=== PATIENT | female | born 1935 | race Caucasian/White ===

== ENCOUNTER 2017-06-10 07:41 | Day surgery (SDC) | payer MEDICARE ==
[~2017-06-10] VITALS: Ht 157.5 cm; Wt 52.2 kg
[~2017-06-10 07:41] MED LIST: ASPI81TA85 PO; CALC1TAB60 PO; CALCCAP PO; CALCTAB7 PO; ESTR62CR PV; METF500T4 PO; METO50TA7 PO; MULTIVIT WITH IRON PO; MULTLIQ7; MULTTAB24 PO; NEXI20CA PO; OMEP20CA3 PO; OSTETAB2 PO; PRAV10TA4 PO; PREM.6256 PO; RAMI25CA PO; RANI50SY IV; RANI50SY PO; VALI5TAB PO; VITA-110 PO; VITATAB54 PO
[2017-06-10] MEDS ORDERED: NS 1,000 ML IV ONE (07:45)
[2017-06-10] MEDS ORDERED: PROPOFOL 200 MG/20 ML VIAL As Ordered ONE (07:54)
[2017-06-10] MEDS ORDERED: LIDOCAINE 2% INJ 100 MG/5 ML SDV (FOR ANES.) As Ordered ONE (07:54)
--- NOTE | 2017-06-10 10:02 | ROOR ---
Patient Name: Debora Tai Procedure Date: 06/10/2017 9:35 AM Date of : 1935 Age: 81 Room: [facility] Gender: Female Note Status: Finalized Procedure: Colonoscopy Indications: High risk colon cancer surveillance: Personal history of adenoma with high grade dysplasia. (5 mm sigmoid adenoma with HGD 09/2015) Providers: Linwood MAGUIRE MD Referring MD: MIRNA MONAE MD Requesting Provider: Medicines: Monitored Anesthesia Care Complications: No immediate complications. Procedure: Pre-Anesthesia Assessment: - The heart rate, respiratory rate, oxygen saturations, blood pressure, adequacy of pulmonary ventilation, and response to care were monitored throughout the procedure. The Colonoscope was introduced through the anus and advanced to the cecum, identified by appendiceal orifice and ileocecal valve. The colonoscopy was performed without difficulty. The patient tolerated the procedure well. The quality of the bowel preparation was good. Findings: The perianal and digital rectal examinations were normal. (Exam: Complete, Prep: Good or Excellent.) A diminutive polyp was found in the ascending colon. The polyp was sessile. The polyp was removed with a cold snare. Resection and retrieval were complete. Multiple medium-mouthed diverticula were found in the sigmoid colon. There is no endoscopic evidence of polyps in the sigmoid colon. Impression: - One diminutive polyp in the ascending colon, removed with a cold snare. Resected and retrieved. - Moderate diverticulosis in the sigmoid colon. - The colon is otherwise normal. - I do not see any recurrent/residual polyp in sigmoid colon. Recommendation: - Repeat colonoscopy in 1 year for surveillance of high-grade dysplasia. Linwood Maguire MD Linwood MAGUIRE MD 06/10/2017 10:02:35 AM This report has been signed electronically. Number of Addenda: 0 Note Initiated On: 06/10/2017 9:35 AM Estimated Blood Loss: Estimated blood loss: none.
[2017-06-10 10:20] VITALS: BP 145/85
== END 2017-06-10 10:32 | disposition home or self-care (01) ==
LOC: M OPP 07:41
PROVIDERS: ATTEND Internal Medicine Gastroenterology
DX: Z09 Encounter for follow-up examination after completed treatment for conditions other than malignant neoplasm (principal); D37.4 Neoplasm of uncertain behavior of colon; D12.2 Benign neoplasm of ascending colon; K57.30 Diverticulosis of large intestine without perforation or abscess without bleeding; I10 Essential (primary) hypertension; E78.5 Hyperlipidemia, unspecified; E11.9 Type 2 diabetes mellitus without complications; R12 Heartburn; K21.9 Gastro-esophageal reflux disease without esophagitis; M19.90 Unspecified osteoarthritis, unspecified site; Z78.0 Asymptomatic menopausal state; Z79.82 Long term (current) use of aspirin; Z79.899 Other long term (current) drug therapy; Z79.84 Long term (current) use of oral hypoglycemic drugs; Z88.8 Allergy status to other drugs, medicaments and biological substances; Z80.3 Family history of malignant neoplasm of breast; Z80.8 Family history of malignant neoplasm of other organs or systems

== ENCOUNTER 2018-12-29 07:45 | Day surgery (SDC) | payer MEDICARE ==
[~2018-12-29] VITALS: Ht 154.9 cm; Wt 50.3 kg
[~2018-12-29 07:45] MED LIST changes: +CALCCAP4 PO; +OMEP-218 PO; +RAMI1CAP22 PO; -RAMI25CA PO; -RANI50SY IV; -RANI50SY PO; +VITA400T PO; +ZANT25IN19 IV; +ZANT25IN19 PO
[2018-12-29] MEDS ORDERED: PROPOFOL 500 MG/50 ML VIAL As Ordered ONE (07:49)
[2018-12-29] MEDS ORDERED: NS 1,000 ML IV SCH (08:30)
[2018-12-29] MEDS ORDERED: LIDOCAINE 2% INJ 100 MG/5 ML SDV (FOR ANES.) As Ordered ONE (08:58)
--- NOTE | 2018-12-29 09:28 | ROOR ---
Patient Name: Debora Tai Procedure Date: 12/29/2018 9:12 AM Date of : 1935 Age: 83 Room: [facility] Gender: Female Note Status: Finalized Procedure: Upper GI endoscopy Indications: Surveillance for malignancy due to personal history of Weiss's esophagus, Heartburn Providers: Linwood MAGUIRE MD Referring MD: MIRNA MONAE MD Requesting Provider: Medicines: Monitored Anesthesia Care Complications: No immediate complications. Procedure: Pre-Anesthesia Assessment: - The heart rate, respiratory rate, oxygen saturations, blood pressure, adequacy of pulmonary ventilation, and response to care were monitored throughout the procedure. The Endoscope was introduced through the mouth, and advanced to the second part of duodenum. The upper GI endoscopy was accomplished without difficulty. The patient tolerated the procedure well. Findings: The Z-line was variable and was found 35 cm from the incisors. This was biopsied with a cold forceps for histology. A large hiatal hernia was present. The exam of the stomach was otherwise normal. The examined duodenum was normal. Impression: - Z-line variable, 35 cm from the incisors. Biopsied. - Moderate to large hiatal hernia. - Otherwise normal stomach. - Normal examined duodenum. Recommendation: - Continue present medications. - Observe patient's clinical course. Linwood Maguire MD Linwood MAGUIRE MD 12/29/2018 9:28:04 AM Electronically signed by Linwood MAGUIRE MD Number of Addenda: 0 Note Initiated On: 12/29/2018 9:12 AM Estimated Blood Loss: Estimated blood loss: none.
[2018-12-29] MEDS ORDERED: PHENYLephrine HCL 500 MCG/5 ML (100MCG/ML) SYRINGE (J2370) As Ordered ONE (09:29)
--- NOTE | 2018-12-29 09:41 | ROOR ---
Patient Name: Debora Tai Procedure Date: 12/29/2018 9:13 AM Date of : 1935 Age: 83 Room: [facility] Gender: Female Note Status: Finalized Procedure: Colonoscopy Indications: High risk colon cancer surveillance: Personal history of colonic polyps, High risk colon cancer surveillance: Personal history of adenoma with high grade dysplasia Providers: Linwood MAGUIRE MD Referring MD: MIRNA MONAE MD Requesting Provider: Medicines: Monitored Anesthesia Care Complications: No immediate complications. Procedure: Pre-Anesthesia Assessment: - The heart rate, respiratory rate, oxygen saturations, blood pressure, adequacy of pulmonary ventilation, and response to care were monitored throughout the procedure. The Colonoscope was introduced through the anus and advanced to the terminal ileum, with identification of the appendiceal orifice and IC valve. The colonoscopy was performed without difficulty. The patient tolerated the procedure well. The quality of the bowel preparation was good. Findings: The perianal and digital rectal examinations were normal. Mild sigmoid diverticulosis and small internal hemorrhoids. The entire examined colon appeared normal on direct and retroflexion views. Impression: - Mild sigmoid diverticulosis and small internal hemorrhoids. - The entire examined colon is normal on direct and retroflexion views. - No specimens collected. Recommendation: - Repeat colonoscopy in 5 years for surveillance. Linwood Maguire MD Linwood MAGUIRE MD 12/29/2018 9:41:04 AM Electronically signed by Linwood MAGUIRE MD Number of Addenda: 0 Note Initiated On: 12/29/2018 9:13 AM Estimated Blood Loss: Estimated blood loss: none.
[2018-12-29 10:19] VITALS: BP 124/71
== END 2018-12-29 10:20 | disposition home or self-care (01) ==
LOC: M OPP 07:45
PROVIDERS: ATTEND Internal Medicine Gastroenterology
DX: Z86.010 Personal history of colon polyps (principal); K57.30 Diverticulosis of large intestine without perforation or abscess without bleeding; K22.8 Other specified diseases of esophagus; K44.9 Diaphragmatic hernia without obstruction or gangrene; K22.70 Barrett's esophagus without dysplasia; R12 Heartburn; Z79.82 Long term (current) use of aspirin; Z79.84 Long term (current) use of oral hypoglycemic drugs; Z79.899 Other long term (current) drug therapy; Z88.8 Allergy status to other drugs, medicaments and biological substances
CPT/HCPCS: 43239; 45378; 88305; J2370

== ENCOUNTER → 2020-10-31 | Outpatient (CLI) | payer MEDICARE ==
[~2020-10-31] MED LIST changes: -ASPI81TA85 PO; +ASPI81TA86 PO; +CALC-211 PO; -CALCTAB7 PO; +METF-838 PO; -METF500T4 PO; +OMEP1CAP73 PO; -OMEP20CA3 PO; +ZANT1INJ2 IV; +ZANT1INJ2 PO; -ZANT25IN19 IV; -ZANT25IN19 PO
--- NOTE | 2020-10-31 11:32 | RADONC.CN ---
Radiation Oncology Hx/Consult Radiation Oncology Consult Date of Service: Oct 31, 2020 Pt Identifier Debora Tai is a 84 year old female with a history of right breast cancer pT2N0(sn)M0 ER/DE+ HER2- Grade 2 ILC. She is s/p lumpectomy and SLNB with Dr. Flynn on 10/12/20. She is seen today for consideration of adjuvant RT. She also has an MRI detected lesion of the left breast s/p negative biopsy on 09/14/20, for which repeat biopsy has been recommended. Additional workup for this lesion is pending her next appointment with Dr. Flynn on 11/22/20. Diagnosis/Treatment History Oncologic History Late 2019 patient noted lump in lower right breast 07/27/20 mammogram and biopsy showed ILC grade 2 ER/DE+ HER2- August 2020 MRI showing left breast abnormality (not palpable) 09/14/20 Left breast biopsy negative, repeat biopsy recommended by radiologist 10/12/20 Right breast lumpectomy and SLNB pT2N0(sn)M0 Grade 2 ILC margins negative Breast history: 1st @ 24 Menses @ 13 Menopause @52 HRT use history No OCP No fertility tx Interval History Debora is here with her daughter. She reports she is feeling well overall. She has some lingering axillary tenderness on the right, but full ROM. She has no skin concerns. No swelling or tenderness in the breast. She reports that there is no palpable abnormality on the left. She has arthritis pain but is fully ambulatory. She has good appetite and stable weight. Past Medical History: Athritis Osteoporosis DMII GERD Hiatal hernia Stress incontinence Past Surgical History: As above Family History: Mother-breast cancer Daughter-breast cancer Social History: Never smoker Never drinker Allergies / Meds Allergies: Coded Allergies: pantoprazole (Verified Adverse Reaction, Unknown, diarrhea, 12/15/18) Home Meds Reported Medications Cholecalciferol (Vitamin D3) (Vitamin D3) 400 Unit Tablet, 800 UNIT PO DAILY, TAB 12/15/18 Calcium Carbonate/Vitamin D3 (Calcium 600 + Vit D 400 Softgl) 1 Each Capsule, 1 CAP PO, CAP 12/15/18 Omeprazole (Omeprazole) 20 Mg Capsule.dr, 20 MG PO BID, CAP 12/15/18 Mv,Calcium,Min/Iron/Folic/Vitk (Multi For Her Tablet) 1 Tab Tab, 1 TAB PO DAILY, TAB 05/26/17 Aspirin (Aspir 81) 81 Mg Tab, 81 MG PO DAILY, TAB 08/08/15 Glucosam/Judah-Msm1/C/Ayan/Bosw (Osteo Bi-Flex Caplet) 1 Tab Tab, 2 TAB PO DAILY, TAB 08/08/15 Diazepam (Valium) 5 Mg Tab, 5 MG PO PRN for ANXIETY/AGITATION, TAB 08/08/15 Conjugated Estrogens (Premarin) 1 Dose/30 Gm Cr, 0 PV TWICE A WEEK, CR 08/08/15 Metoprolol Tartrate (Metoprolol Tartrate) 50 Mg Tab, 50 MG PO DAILY, TAB 08/08/15 Pravastatin Sodium (Pravastatin Sodium) 10 Mg Tab, 10 MG PO DAILY, TAB 08/08/15 Ramipril (Ramipril) 2.5 Mg Cap, 2.5 MG PO DAILY, CAP 08/08/15 Metformin HCl (Metformin HCl ER) 500 Mg Tab, 500 MG PO DAILY, TAB 08/08/15 Review of Systems General: Reports: Normal Appetite Constitutional: Denies: Chills, Fever, Night Sweats Eyes: Denies: Pain, Vision change HEENT: Denies: Head Aches, Dysphagia, Sore Throat Skin: Denies: Rash, Lesions, Bruising Pulmonary: Denies: Dyspnea, Cough Cardiovascular: Denies: Chest Pain, Palpitations, Edema Breast: Denies: New Breast Lumps / Masses, Nipple Retraction, Nipple Discharge, Breast Skin Changes, Breast Pain or Tenderness, Other Breast Complaints Gastrointestinal: Denies: Nausea, Vomiting, Abdominal Pain, Diarrhea Genitourinary: Denies: Dysuria, Frequency, Incontinence Hematologic: Denies: Bruising, Petecchia, Enlarged Lymph Nodes Musculoskeletal: Denies: Neck pain, Back pain Neurological: Denies: Weakness, Numbness, Incoordination Psych: Reports: Mood Normal; Denies: Memory Issues, Thoughts of Self Harm Vital Signs Ht 62" Wt 108 lbs T 98 P 85 RR 16 BP 137/80 O2 96% Pain 0 Fatigue 0 General Exam: Positive: Alert, Cooperative, No Acute Distress Eye Exam: Positive: PERRLA, EOMI ENT EXAM: Positive: Mucous membr. moist/pink, Pharynx Normal Neck Exam: Negative: Thyromegaly, Lymphadenopathy Chest Exam: Positive: Normal air movement; Negative: Rales, Rhonchi, Wheezing Heart Exam: Positive: Rate Normal, Regular Rhythm Breast Exam: Positive: Symmetric Bilaterally (Ptotic. Palpable seroma right inferiolateral breast), Skin Changes (Right inferolateral incision healing wiht steristrips); Negative: Lumps or Masses, Nipple Retraction, Nipple Discharge Abdomen Exam: Positive: Soft; Negative: Tenderness Extremity Exam: Negative: Edema Skin Exam: Positive: Nl turgor and temperature, Rash (There are 2 small papular lesions in the periumbilical region, these are red without excoriation resembling insect bites) Neuro Exam: Positive: Normal Gait, Normal Speech, Cranial Nerves 3-12 NL Psych Exam: Positive: Mental status NL, Mood NL, Memory Intact Diagnostic and Laboratory Diagnostic Review Radiologic images, relevant labs and pathology reports were personally reviewed and discussed with Ms. Tai. Assessment and Plan Impression Ms. Tai is a 84 year old female with a history of right breast cancer pT2N0(sn)M0 ER/DE+ HER2- Grade 2 ILC. She is s/p lumpectomy and SLNB with Dr. Flynn on 10/12/20. She is seen today for consideration of adjuvant RT. She also has an MRI detected lesion of the left breast s/p negative biopsy on 09/14/20, for which repeat biopsy has been recommended. Additional workup for this lesion is pending her next appointment with Dr. Flynn on 11/22/20. Stage Right lower outer breast cancer pT2N0(sn)M0 ER/DE+ HER2- Grade 2 Stage IA Performance Status ECOG 0 Plan We had an extensive discussion with Ms. Tai regarding the diagnosis at hand and available therapeutic options. She is doing well and healing from surgery, the right lateral breast incision is not fully healed as of yet. She has elected to forego oncotype but has agreed to take an AI. She has an early stage lobular cancer on the right. She also has a radiographic abnormality on the left for which a biopsy was done and returned negative, with a repeat biopsy recommended (I have incomplete records of this). I asked if they had a clear plan for repeat biopsy and they have a follow up with Dr. Flynn on 11/22/20 and hope to clarify this with him then. If she has another left-sided biopsy I favor waiting until the pathology is read prior to proceeding with RT, as she may require another surgery if there is invasive disease, and if radiation is then warranted to the left in addition to the right, treating both sides at the same time makes the most sense to me. She could certainly start the AI in the interim if there was going to be a significant delay, as the timing of adjuvant RT is not critical in these instances of clear-margin resection and early stage disease. In addition she would benefit from further healing at this time anyway and waiting an additional 3 weeks for her to see Dr. Flynn is reasonable. For treatment of the right breast (assuming the left breast workup is negative) I discussed adjuvant whole breast radiation either 40 Gy in 15 fractions or 26 Gy in 5 fractions (per the recent FAST FORWARD trial) given her age and preferences to minimize time and travel, she is interested in the shorter schedule. I do not feel strongly that she needs a tumor bed boost and so will omit as this would add additional time to her treatment. I did also discuss that we could consider APBI (she would be conditional per MELITA guidelines), or omission of RT altogether, but we agreed that whole breast would be best. I will await the results of her conversation with Dr. Flynn on 11/22/20 and if she foregoes additional workup, or has another negative biopsy we will proceed with treatment immediately. We discussed the logistics of receiving radiation therapy in detail including the need for a 1-time planning session. We reviewed the side effects of treatment namely fatigue, skin reaction and late fibrosis. After discussing the risks, benefits and alternatives to radiation therapy, Ms. Tai was amenable to pursuing radiotherapy. All questions were answered to the patient's satisfaction. We instructed the patient that if there were any questions,concerns or changes in clinical status in the interim to contact us. Recommendations Pending completion of left breast workup and additional healing; Right whole breast RT 26 Gy in 5 fractions per FAST FORWARD Simulation after follow up with Dr. Flynn on 11/22/20 If additional left breast surgery is needed pending biopsy, then would hold adjuvant RT until surgical procedures completed Patient and her daughter will inform me of subsequent plans Billing Statement Total time of [50] minutes was spent preparing for the visit [4], obtaining HPI [5], examining the patient [3], reviewing diagnostic tests [3], discussing management options [20], coordinating care [4], and writing this note [11]. YUKI KHALIL MD Oct 31, 2020 11:32
== END ==
LOC: M ONCR 08:44
PROVIDERS: ATTEND General Practice
DX: C50.911 Malignant neoplasm of unspecified site of right female breast (principal)

== ENCOUNTER 2020-12-29 09:28 | Outpatient (RCR) | payer MEDICARE | END 2021-01-10 | LOC: M ONCR 09:28 | PROVIDERS: ATTEND General Practice | DX: C50.511 Malignant neoplasm of lower-outer quadrant of right female breast (principal) ==

== ENCOUNTER → 2021-04-04 | Outpatient (CLI) | payer MEDICARE ==
[~2021-04-04] MED LIST changes: +ASPI81CH33 PO
--- NOTE | 2021-04-04 11:40 | RADONC ---
Radiation Oncology Hx/FUP Radiation Oncology Hx/FUP Date of Service: Apr 04, 2021 Pt Identifier Debora Tai is a 85 year old female seen for a followup visit today at the department of radiation oncology for a history of right breast cancer pT2N0(sn)M0 ER/OR+ HER2- Grade 2 ILC. She is s/p lumpectomy and SLNB with Dr. Flynn on 10/12/20. She is seen today for consideration of adjuvant RT. She also has an MRI detected lesion of the left breast s/p negative biopsy on 09/14/20, for which repeat biopsy was recommended and ultimately proved negative. She completed adjuvant APBI 26 Gy in 5 fractions from 12/25/20-12/29/20. She declined endocrine therapy. Diagnosis/Treatment History Oncologic History Late 2019 patient noted lump in lower right breast 07/27/20 mammogram and biopsy showed ILC grade 2 ER/OR+ HER2- August 2020 MRI showing left breast abnormality (not palpable) 09/14/20 Left breast biopsy negative, repeat biopsy recommended by radiologist 10/12/20 Right breast lumpectomy and SLNB pT2N0(sn)M0 Grade 2 ILC margins negative November 2020 repeat left breast biopsy negative 12/25/20-12/29/20 Adjuvant APBI 26 Gy in 5 fractions Survivorship: Test Due Next Last result Notes TSH, T4* 6m post-tx, then q1y N/A Carotid US* q10 y post-tx N/A Smoking cessation Assess annually if applicable N/A Screening CT chest q1y if eligible per USPSTF N/A Mammograms Min q1y, if breast conservation 06/2021 @ [place] 1st since tx, Dr. Flynn ordering CBC,CMP, Lipids q1y 2021 Dr. Shah is PCP DEXA q2y if on AI N/A Interval History Debora reports she is doing well overall. [place]els [place] from [place], but is coping with this as well as her 's alzheimer's. She has no breast complaints other than mild tenderness when she lays on her right side, not bothersome. She has follow up with Dr. Flynn scheduled after her mammograms in June 2021. Appetite and weight stable. Current Therapy Surveillance Stage Right lower outer breast cancer pT2N0(sn)M0 ER/OR+ HER2- Grade 2 Stage IA Social History: Never smoker Never drinker Allergies / Meds Allergies: Coded Allergies: pantoprazole (Verified Adverse Reaction, Unknown, diarrhea, 12/15/18) Home Meds Reported Medications Aspirin (Aspirin) 81 Mg Tab.chew, 1 TAB PO DAILY for pain for 30 Days, #30 TAB 02/05/21 Calcium Carbonate/Vitamin D3 (Calcium 600 + Vit D 400 Softgl) 1 Each Capsule, 1 CAP PO, CAP 12/15/18 Omeprazole (Omeprazole) 20 Mg Capsule.dr, 20 MG PO BID, CAP 12/15/18 Mv,Calcium,Min/Iron/Folic/Vitk (Multi For Her Tablet) 1 Tab Tab, 1 TAB PO DAILY, TAB 05/26/17 Glucosam/Judah-Msm1/C/Ayan/Bosw (Osteo Bi-Flex Caplet) 1 Tab Tab, 2 TAB PO DAILY, TAB 08/08/15 Diazepam (Valium) 5 Mg Tab, 5 MG PO PRN for ANXIETY/AGITATION, TAB 08/08/15 Conjugated Estrogens (Premarin) 1 Dose/30 Gm Cr, 0 PV TWICE A WEEK, CR 08/08/15 Metoprolol Tartrate (Metoprolol Tartrate) 50 Mg Tab, 50 MG PO DAILY, TAB 08/08/15 Pravastatin Sodium (Pravastatin Sodium) 10 Mg Tab, 10 MG PO DAILY, TAB 08/08/15 Ramipril (Ramipril) 2.5 Mg Cap, 2.5 MG PO DAILY, CAP 08/08/15 Metformin HCl (Metformin HCl ER) 500 Mg Tab, 500 MG PO DAILY, TAB 08/08/15 Review of Systems Review of Systems Constitutional: Denies: Fatigue, Weight Loss Eyes: Denies: Pain HEENT: Denies: Head Aches Skin: Denies: Rash Breast: Denies: New Breast Lumps / Masses, Breast Pain or Tenderness, Other Breast Complaints Pulmonary: Denies: Dyspnea Cardiovascular: Denies: Chest Pain Gastrointestinal: Denies: Abdominal Pain Musculoskeletal: Denies: Neck pain, Back pain Neurological: Denies: Weakness, Numbness Psych: Reports: Mood Normal Physical Examination Vital Signs Wt 108 lbs T 98 P 70 RR 18 BP 133/78 O2 95% Pain 0 Fatigue 0 General Exam: Alert, Cooperative, No Acute Distress Eye Exam: PERRLA, EOMI ENT EXAM: Atraumatic Neck Exam: Supple Chest Exam: Clear to auscultation Heart Exam: Rate Normal Breast Exam: Symmetric Bilaterally (Ptosis, Right lies higher than left. ); Negative: Lumps or Masses (No palpable lesions in the BL breast and axillae, there is a palpable surgical site in the lateral right breast, non-tender. The right nipple is inverted, the left less so.), Skin Changes Extremity Exam: Negative: Edema Skin Exam: Nl turgor and temperature Neuro Exam: Normal Gait, Normal Speech, Cranial Nerves 3-12 NL Psych Exam: Mental status NL Diagnostic and Laboratory Diagnostic Review Radiologic images, relevant labs and pathology reports were personally reviewed and discussed with Ms. Tai. Assessment and Plan Impression Assessment Ms. Tai is a 85 year old female with a history of right breast cancer pT2N0(sn)M0 ER/OR+ HER2- Grade 2 ILC. She is s/p lumpectomy and SLNB with Dr. Flynn on 10/12/20. She is seen today for consideration of adjuvant RT. She also has an MRI detected lesion of the left breast s/p negative biopsy on 09/14/20, for which repeat biopsy was recommended and ultimately proved negative. She complet ed adjuvant APBI 26 Gy in 5 fractions from 12/25/20-12/29/20. She declined endocrine therapy. She is doing well and has no evidence of recurrent disease on exam today. She has some mild asymmetry in the lie of the right breast compared to left, but this does not bother her. She has no skin changes suggestive of RT history at this time. I will continue to follow her in conjunction with Dr. Flynn who has arranged mammograms for June 2021 in [place], thus I will see her in 6 months time in order to stagger her follow up appointments optimally. She is not due for any survivorship elements today. Performance Status ECOG 0 Plan Follow up in 6 months Ms. Tai was encouraged to call with questions or concerns in the interim period. Billing Statement Total time of [26] minutes was spent preparing for the visit [1], obtaining HPI [6], examining the patient [3], reviewing diagnostic tests [2], discussing management options [7], coordinating care [1], and writing this note [6]. YUKI KHALIL MD Apr 04, 2021 11:40
== END ==
LOC: M ONCR 10:18
PROVIDERS: ATTEND General Practice
DX: C50.511 Malignant neoplasm of lower-outer quadrant of right female breast (principal); Z79.82 Long term (current) use of aspirin; Z79.84 Long term (current) use of oral hypoglycemic drugs; Z79.899 Other long term (current) drug therapy; Z88.8 Allergy status to other drugs, medicaments and biological substances

== ENCOUNTER → 2021-10-03 | Outpatient (CLI) | payer MEDICARE ==
[~2021-10-03] MED LIST changes: +OMEP-173 PO; -OMEP-218 PO
== END ==
LOC: M ONCR 13:48
PROVIDERS: ATTEND General Practice
DX: C50.511 Malignant neoplasm of lower-outer quadrant of right female breast (principal); Z79.82 Long term (current) use of aspirin; Z79.899 Other long term (current) drug therapy; Z92.3 Personal history of irradiation

== ENCOUNTER → 2022-04-05 | Outpatient (CLI) | payer MEDICARE ==
[~2022-04-05] MED LIST changes: +[UNRECOGNIZED DRUG - CODE] TP
== END ==
LOC: M ONCR 12:42
PROVIDERS: ATTEND General Practice
DX: Z08 Encounter for follow-up examination after completed treatment for malignant neoplasm (principal); Z85.3 Personal history of malignant neoplasm of breast; Z79.811 Long term (current) use of aromatase inhibitors; Z79.82 Long term (current) use of aspirin; Z79.84 Long term (current) use of oral hypoglycemic drugs; Z79.899 Other long term (current) drug therapy; Z88.8 Allergy status to other drugs, medicaments and biological substances; Z92.3 Personal history of irradiation

== ENCOUNTER → 2024-04-06 | Outpatient (CLI) | payer MEDICARE ==
[~2024-04-06] MED LIST changes: +ESTR62CR VG; +LETR2.5T2 PO; -RAMI1CAP22 PO; +RAMI2.5C42 PO
== END ==
LOC: M ONCR 09:20
PROVIDERS: ATTEND General Practice
DX: C50.511 Malignant neoplasm of lower-outer quadrant of right female breast (principal); M25.50 Pain in unspecified joint; Z79.811 Long term (current) use of aromatase inhibitors; Z79.899 Other long term (current) drug therapy; Z88.8 Allergy status to other drugs, medicaments and biological substances